=== PATIENT | male | born 2000 | race Caucasian/White ===

== ENCOUNTER 2021-12-26 23:29 | Emergency (ER) | payer SELFPAY ==
[2021-12-26 23:46] VITALS: BP 147/92; PULSE 60; RESP 20; TEMP 36.6; O2SAT 99; BMI 32.1
--- NOTE | 2021-12-27 02:14 | XRR_ITS ---
PROCEDURE INFORMATION: Exam: XR Cervical Spine Exam date and time: 12/27/2021 2:29 AM Age: 21 years old Clinical indication: Patient HX: Sudden onset of left sided neck pain radiating up into head. TECHNIQUE: Imaging protocol: XR of the cervical spine. Views: 2 or 3 views. COMPARISON: No relevant prior studies available. FINDINGS: Bones/joints: There is normal vertebral body alignment. There are normal vertebral body heights. Disc spaces are symmetric and maintained. The dens is intact. The lateral masses of C1 are symmetric. No fracture. Soft tissues: Atlantodental interval and prevertebral soft tissues are normal. XR/XR cervical spine 3V* [id number] IMPRESSION: No fracture.
[2021-12-27 02:25] VITALS: RESP 18
[2021-12-27] MEDS: ondansetron 4 MG Tablet PO (02:25)
[2021-12-27] MEDS: oxyCODONE-APAP 5-325 mg Tablet 2 TAB PO (02:25)
[2021-12-27 02:28] VITALS: BP 133/74; PULSE 62; RESP 18; O2SAT 97
--- NOTE | 2021-12-27 03:16 | W.ED.NECK ---
HPI - Neck Pain/Injury General: Chief Complaint: Neck Pain/Injury Stated Complaint: Pain in Neck moved to Head Time Seen by Provider: 12/27/21 02:00 Source: patient History of Present Illness: 21-year-old male with right-sided neck pain radiating up to his occiput after sitting down at work this evening. No radicular pain. No vision changes. He states that he got nauseated with the pain. The pain is currently improved. Somewhat worse with movement. No history of fever. No other systemic symptoms. MD complaint: neck pain Onset (ago): hour(s) Place: work Radiation: right lateral Severity: moderate Quality: sharp and stabbing Associated symptoms: Reports headache(s) (Mild occipital) and nausea; Denies dysphagia, difficulty walking, fevers/chills or weakness Review of Systems Const: Denies: fever(s), chills or body aches Eyes: Denies: change in vision or blurry vision ENMT: Denies: throat pain Card: Denies: chest pain Resp: Denies: dyspnea, productive cough or non-productive cough GI: Reports: nausea; Denies: dysphagia Musc: Reports: neck pain; Denies: back pain or extremity pain Skin/Breast: Denies: rash Neuro: Reports: headache(s) (Mild occipital); Denies: difficulty walking Physical Exam Const: COMMON NORMALS: no acute distress GENERAL APPEARANCE: cooperative and comfortable HENMT: COMMON NORMALS: normocephalic and Normal external nose present HEAD & SCALP: normocephalic FACE & SINUS: normal facial exam NOSE: Normal external nose present Eye: COMMON NORMALS: Equal, round and reactive pupils present and EOMs intact bilaterally PUPIL: Yes Equal, round and reactive pupils present Neck/C-Spine: CERVICAL SPINE: Yes cervical ROM normal, Yes normal cervical lordosis, No Cervical spine tenderness and Yes Paracervical muscle tenderness right Chest: COMMONS NORMALS: normal inspection of the chest Resp: COMMON NORMALS: normal respiratory effort and No use of accessory muscles Cardio: COMMON NORMALS: regular rate RATE: regular rate Neuro: MICHELA COMA SCALE: document GCS findings [place] coma scale eye opening: Spontaneous Michela coma scale verbal response: Orientated Michela coma scale motor response: Obey commands [place] coma scale total score: 15 SPEECH: speech normal MOTOR EXAM: Normal motor muscle tone present throughout Course Vital Signs: Vital signs: Vital Signs Temperature 97.9 F 12/26/21 23:46 Pulse Rate 62 12/27/21 02:28 Respiratory Rate 18 12/27/21 02:28 Blood Pressure 133/74 12/27/21 02:28 Pulse Oximetry 97 12/27/21 02:28 MDM - Neck Pain/Injury Medical Decision Making Range of motion is normal, and essentially painless, save some paracervicals soreness on the right side. This is mildly reproducible by palpation. Patient has no neurological signs. Plain films of the C-spine are normal. Discharge Plan Discharge Patient Disposition: Home Clinical Impression: Strain of neck muscle Condition: Stable Prescriptions: New ketorolac 10 mg tablet 10 mg PO TID PRN (Reason: pain) Qty: 10 0RF cyclobenzaprine 10 mg tablet 10 mg PO Q8H Qty: 10 0RF Discharge Orders: Discharge ED (Routine); Ordered 12/27/21 Ordered By: Sixto Persaud Discharge Diet: Advance as tolerated Discharge Activity: Increase activity as tolerated Patient Instructions: Cervical Strain (ED) Activity Restrictions/Additional Instructions: Take medication scheduled for the first 24 hours, then as needed. Return to the emergency department for worsening pain despite treatment, mental status changes, language problems, significant weakness, or any other concerning symptoms. 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
== END 2021-12-27 03:44 | disposition home or self-care (01) ==
PROVIDERS: Emergency Provider Emergency Medicine
DX: S16.1XXA Strain of muscle, fascia and tendon at neck level, initial encounter (principal); X58.XXXA Exposure to other specified factors, initial encounter
CPT/HCPCS: 72040; 99283; Q0162

== ENCOUNTER 2022-07-20 22:11 | Emergency (ER) | payer SELFPAY ==
[2022-07-20 22:15] VITALS: BP 146/81; PULSE 100; RESP 18; TEMP 36.7; O2SAT 98; BMI 33.0
--- NOTE | 2022-07-20 22:28 | XRR_ITS ---
PROCEDURE INFORMATION: Exam: XR Chest Exam date and time: 07/20/2022 10:45 PM Age: 21 years old Clinical indication: Other: Cough TECHNIQUE: Imaging protocol: Radiologic exam of the chest. Views: 1 view. COMPARISON: CR XR cervical spine 3V* [id number] 12/27/2021 2:29 AM FINDINGS: Lungs: Peribronchial thickening. No consolidation. Pleural spaces: Unremarkable. No pleural effusion. No pneumothorax. Heart/Mediastinum: Unremarkable. No cardiomegaly. Bones/joints: Unremarkable. XR/XR chest 1V portable [id number] IMPRESSION: Peribronchial thickening suggestive of an infectious or inflammatory bronchitis.
--- NOTE | 2022-07-20 22:32 | W.ED.SOB ---
HPI - SOB/Dyspnea General: Chief Complaint: Shortness of Breath/Dyspnea Stated Complaint: SOB Time Seen by Provider: 07/20/22 22:28 History of Present Illness: HPI Narrative: 21-year-old male patient comes in [facility] for complaints of persistent coughing for the last month. Female significant other states that patient's coughing spells are really hard at times. Patient appears nontoxic. Patient has a history of cigarette smoking. Patient reports stopped smoking about 6 months ago. Patient denies any history of asthma. Patient takes no routine medications. Patient does report history of bronchitis yearly about this time. Associated symptoms: Deny fever(s), nausea or vomiting Review of Systems Const: Denies: fever(s) Resp: Reports: dyspnea, non-productive cough and wheezing GI: Denies: nausea or vomiting Physical Exam Const: COMMON NORMALS: alert HENMT: COMMON NORMALS: atraumatic HEAD & SCALP: atraumatic Neck/C-Spine: COMMON NORMALS: full ROM Resp: COMMON NORMALS: normal respiratory effort and clear to auscultation bilaterally AUSCULTATION: clear to auscultation bilaterally Cardio: COMMON NORMALS: regular rate and regular rhythm RATE: regular rate RHYTHM: regular rhythm Extremity: COMMON NORMALS: normal to inspection Neuro: SENSORIUM/ORIENTATION: Yes alert Skin: COMMON NORMALS: turgor normal GENERAL SKIN EXAM: turgor normal Course Vital Signs: Vital signs: Vital Signs Temperature 98.1 F 07/20/22 22:15 Pulse Rate 100 07/20/22 22:15 Respiratory Rate 18 07/20/22 22:15 Blood Pressure 146/81 07/20/22 22:15 Pulse Oximetry 98 07/20/22 22:15 Oxygen Delivery Me thod 07/20/22 22:15 MDM - SOB/Dyspnea Medical Decision Making 21-year-old male comes in today for complaints of persistent coughing. Patient reports cough on and off for the last month. On exam patient has normal lung conklin. Vital signs are normal except for some elevation of blood pressure at 146 systolic. Skin is warm and dry. No edema is noted in the extremities. Differential diagnosis includes but not limited to postnasal drip, asthma, bronchitis. Chest x-ray was unremarkable. We will treat patient for bronchitis although he may have a variant of asthma since this is a yearly occurrence for him. Patient was given 10 mg of dexamethasone IM. Patient was written for an albuterol inhaler and doxycycline 100 mg twice a day for 7 days. Patient reported understanding of care plan need for follow-up or return to ER. Discharge Plan Discharge Patient Disposition: Home Clinical Impression: Bronchitis Condition: Stable Prescriptions: New doxycycline monohydrate 100 mg capsule 100 mg PO BID 7 Days Qty: 14 0RF albuterol sulfate 90 mcg/actuation HFA aerosol inhaler 2 inh inhalation Q4H PRN (Reason: shortness of breath or wheezing or cough) Qty: 8.5 0RF No Action ketorolac 10 mg tablet 10 mg PO TID PRN (Reason: pain) Qty: 10 0RF cyclobenzaprine 10 mg tablet 10 mg PO Q8H Qty: 10 0RF Discharge Orders: Discharge ED (Routine); Ordered 07/20/22 Ordered By: Daryn Alba Discharge Diet: Usual diet Discharge Activity: Increase activity as tolerated Patient Instructions: Acute Bronchitis (ED) Activity Restrictions/Additional Instructions: Use medication as directed. Take doxycycline 100 mg twice a day for 7 days. Use albuterol inhaler 2 puffs every 4 hours as needed for shortness of breath, wheezing, persistent coughing. Follow-up with primary care in 3 days for recheck. Return to ED for worsening symptoms such as increased shortness of breath, chest pain, or fever greater than 100.4. Stand Alone Forms: Work/School Release Coding Level of Care Code ED Rough And Truing Machine Operator for Malka Ventura
[2022-07-20 22:50] VITALS: PULSE 100; RESP 16; O2SAT 99
[2022-07-20] MEDS: doxycycline 100 mg Tablet PO (23:09)
[2022-07-20] MEDS: albuterol 8 gm MDI 2 PUFF INHALATION (23:32)
== END 2022-07-20 23:38 | disposition home or self-care (01) ==
PROVIDERS: Emergency Provider Nurse Practitioner Family
DX: J40 Bronchitis, not specified as acute or chronic (principal)
CPT/HCPCS: 71045; 94640; 99284; J3535